=== PATIENT | male | born 1990 | race African-American/Black ===

== ENCOUNTER → 2020-09-19 | Outpatient (CLI) | payer OTHER ==
[~2020-09-19] MED LIST: ELIQUIS 5MG PO; FLAGYL500 MG PO; FLEXERIL 1010 MG/TAB PO; FOLIC ACID 11 MG/TA1 PO; IRON TABLETS325 MG PO; LEXAPRO 10MG10 MG PO; NEURONTIN600 MG/TAB PO; TOPROL XL 25MG25 MG PO; TYLENOL 325MG325 MG PO; VITAMIN D31000 I1 PO
== END ==
LOC: COL.RAD 12:23
DX: M54.81 Occipital neuralgia (principal)

== ENCOUNTER → 2020-12-15 | Outpatient (CLI) | payer OTHER | LOC: MHCPAIN 13:02 | DX: M54.16 Radiculopathy, lumbar region (principal); M53.3 Sacrococcygeal disorders, not elsewhere classified; G89.29 Other chronic pain | CPT/HCPCS: G0463 ==

== ENCOUNTER 2021-03-12 10:24 | Inpatient (IN) | payer OTHER ==
[2021-03-12] VITALS (9 sets, daily range): BP systolic 100–119; BP diastolic 44–74; PULSE 53–78; TEMP 98.5–98.8
[~2021-03-12] VITALS: Ht 177.8 cm; Wt 77.6 kg
--- NOTE | 2021-03-12 09:33 | NUR ---
RECEIVED REPORT FROM RADHA ESCOBEDO AT [facility]. AWAITING ARRIVAL OF PT TO ICU 8.
--- NOTE | 2021-03-12 10:57 | NUR ---
PT ARRIVES TO ICU 8 VIA EMS. PT ABLE TO SCOOT SELF TO ICU BED AND PLACED ON CARDIAC CONTINUOUS MONITOR. PT ON 2L VIA NC. VSS. CALL LIGHT AND URINAL WITHIN REACH. [facility] FINISHING UP FROM OTHER FACILITY.
--- NOTE | 2021-03-12 11:50 | NUR ---
DR MCKINLEY AT BEDSIDE DISCUSSING POC WITH PT.
--- NOTE | 2021-03-12 11:57 | NUR ---
DR LUBIN CALLED FOR ARRIVAL OF PT. STATES WILL BE DOWN SHORTLY TO SEE PT.
[2021-03-12 12:27] LABS: HEMOGLOBIN 10.4 g/dl (13.5-18.0); MEAN CELL VOLUME 74 fl (80.0-100.0); MEAN CORPUSCULAR HEMOGLOBIN 24 pg (27.0-31.0); MEAN CORPUSCULAR HGB CONC 32 g/dl (33.0-37.0); RED BLOOD COUNT 4.35 M/mm3 (4.20-5.60); REDCELL DISTRIBUTION WIDTH-CV 15.7 % (11.5-14.5)
[2021-03-12 12:55] LABS: HEMATOCRIT 32.3 % (42.0-52.0)
[2021-03-12 12:56] LABS: PLATELET COUNT 106 K/mm3 (130-400)
[2021-03-12 13:09] LABS: INR 1.5 (0.8-3.0)
[2021-03-12 13:11] LABS: PARTIAL THROMBOPLASTIN TIME 26.7 SECONDS (26.0-37.0)
--- NOTE | 2021-03-12 16:05 | NUR ---
PT TO OR AT 1230 AND BACK TO ICU ROOM AT 1605. RECEIVED REPORT FROM RADHA HODGES FROM PACU AT 1553, PER REPORT PT STABLE BUT C/O SOME DISCOMFORT. PT ARRIVES BACK TO ICU ROOM ON RA. CALL LIGHT AND URINAL WITHIN REACH. POC EXPLAINED, VERBALIZED UNDERSTANDING.
[2021-03-12] MEDS ORDERED: TOPROL XL 25MG25 MG PO (16:11)
[2021-03-12 16:46] LABS: HEMATOCRIT 27.3 % (42.0-52.0); HEMOGLOBIN 8.6 g/dl (13.5-18.0)
[2021-03-12] MEDS ORDERED: IRON TABLETS325 MG PO (17:24)
[2021-03-12] MEDS ORDERED: VITAMIN D31000 I1 PO (17:55)
[2021-03-12] MEDS ORDERED: TYLENOL 325MG325 MG PO (17:55)
[2021-03-12] MEDS ORDERED: LEXAPRO 10MG10 MG PO (17:55)
[2021-03-12] MEDS ORDERED: ELIQUIS 5MG PO (17:56)
[2021-03-12] MEDS ORDERED: FLEXERIL 1010 MG/TAB PO (17:57)
[2021-03-12] MEDS ORDERED: NEURONTIN600 MG/TAB PO (17:57)
[2021-03-12 19:08] LABS: HEMATOCRIT 25.3 % (42.0-52.0); HEMOGLOBIN 8.1 g/dl (13.5-18.0)
[2021-03-12 23:09] LABS: HEMATOCRIT 23.6 % (42.0-52.0); HEMOGLOBIN 7.5 g/dl (13.5-18.0)
[2021-03-13] VITALS (12 sets, daily range): BP systolic 108–124; BP diastolic 42–72; PULSE 54–86; TEMP 98–98.8
[2021-03-13 03:11] LABS: HEMATOCRIT 24.3 % (42.0-52.0); HEMOGLOBIN 7.7 g/dl (13.5-18.0)
[2021-03-13 05:16] LABS: BASO % 0.4 % (0.0-2.0); EOS % 0.3 % (0-4.0); GRAN # 4.6 K/mm3 (1.4-6.5); GRAN % 64.7 % (42.2-75.2); LYMPH # 1.9 K/mm3 (1.2-3.4); MEAN CELL VOLUME 74 fl (80.0-100.0); MEAN CORPUSCULAR HGB CONC 32 g/dl (33.0-37.0); MONO # 0.5 K/mm3 (0.1-0.6); MONO % 7.3 % (1.7-9.3); PLATELET COUNT 77 K/mm3 (130-400); RED BLOOD COUNT 3.03 M/mm3 (4.20-5.60); REDCELL DISTRIBUTION WIDTH-CV 15.4 % (11.5-14.5)
[2021-03-13 05:17] LABS: HEMATOCRIT 22.3 % (42.0-52.0); HEMOGLOBIN 7.2 g/dl (13.5-18.0); MEAN CORPUSCULAR HEMOGLOBIN 24 pg (27.0-31.0)
[2021-03-13 05:30] LABS: CALCIUM 8.1 mg/dL (8.4-10.2); CREATININE, serum 1.22 mg/dL (0.72-1.25); POTASSIUM 3.7 mmol/L (3.5-4.5)
--- NOTE | 2021-03-13 05:53 | NUR ---
PT A/O X3, AFEBRILE, VITAL SIGNS STABLE, ON ROOM AIR. PT DENIES ABD PAIN, AND ADB IS SOFT. PT TIRED UNSUCCESSFULLY TO HAVE A BM OVER NIGHT, UOP FOR SHIFT WAS 1900 M[address]. NO SIGNS OF BLEEDING FROM RECTUM. NO NAUSEA OR VOMITTING. X1 UNIT [facility] WAS INFUSED, [facility] TRENDING. TIMOTHY PARRA CONTACTED CONCERNING [facility] WAS INSTRUCTED TO NOT INFUSE SECOND UNIT AND TO SEE WHAT 0700 [facility] RESULTS WERE. SEE MAR/EMAR FOR OTHER DETAILS.
[2021-03-13 07:06] LABS: HEMATOCRIT 22.9 % (42.0-52.0); HEMOGLOBIN 7.2 g/dl (13.5-18.0)
--- NOTE | 2021-03-13 10:30 | NUR ---
Report from [facility] ICU nurse. Patient settled in room 322. Will monitor.
--- NOTE | 2021-03-13 11:30 | NUR ---
Patient unit of blood started per orders. Reviewed with patient signs and symptoms of transfusion reaction. He is understanding. Blood policy followed. This nurse to remains at bedside.
--- NOTE | 2021-03-13 11:45 | NUR ---
rounded. Plan of care reivewed. Patient continues to tolerate unit of blood without signs or symptoms of reaction.
--- NOTE | 2021-03-13 13:19 | NUR ---
Patient resting in bed. COntinues to tolerate transfusion without signs or symptoms of reaction. Will monitor.
--- NOTE | 2021-03-13 14:43 | NUR ---
Blood transfusion completed. Vss. He tolerated well. Patient complains of a lingering headache. Spoke to Shanell Koch, tylenol orders obtained. Patient provided with Low fiber diet education, patient offered caffiene for headache, but not interested at this time. Patient on phone, will monitor.
--- NOTE | 2021-03-13 16:35 | NUR ---
Patient resting in bed. On his phone. Patient reports getting up to the restroom & he reports feeling stronger after blood. Scds placed to Ble. Fresh ice water provided, he is not yet ready to order dinner. New socks on and hygiene supplies provided. He reports he wants to wait until tmrw to shower. Will continue to monitor.
--- NOTE | 2021-03-13 17:53 | NUR ---
Patient provided with warm blankets for comfort, denies other needs.
[2021-03-13 20:39] LABS: HEMATOCRIT 25.3 % (42.0-52.0); HEMOGLOBIN 8.2 g/dl (13.5-18.0)
--- NOTE | 2021-03-13 23:12 | NUR ---
PT STATES THAT HE IS HAVING SOME TROUBLE SLEEPING, FEELS LIKE HE IS STARTLING HIMSELF AWAKE. PT DENIES ANXIETY WHEN ASKED IF HE IS ANXIOUS. PT STATES THAT HE DOES HAVE A HEADACHE BUT DENIES ANY DIZZINESS OR SHORTNESS OF BREATH. TYLENOL ADMINISTERED FOR PAIN. Chelsea AGUIRRE CALLED ET NEW ORDERS RECEIVED.
--- NOTE | 2021-03-13 23:41 | NUR ---
PT REFUSES MELATONIN @ THIS TIME, STATES THAT HE WOULD LIKE TO TRY TO FALL ASLEEP NATURALLY. PT EDUCATED ON HOW MEDICATION WORKS ET CONTINUES TO REFUSE. PT ENCOURAGED TO CALL IF HE IS UNABLE TO SLEEP AFTER A WHILE. PT AGREES TO THIS THIS. CALL LIGHT WITHIN REACH.
--- NOTE | 2021-03-14 00:48 | NUR ---
PT CONTINUES TO HAVE COMPLAINTS OF NOT SLEEPING WELL ET BEING STARTLED AWAKE. PT IS ENCOURAGED TO TAKE MELATONIN BUT CONTINUES TO REFUSE. PT'S TLM SHOWS THAT PT BECOMES OCCASIONALLY TACHYCARDIC WHEN AWAKE, HR INTO LOW 100s. PT DENIES ANY SOB OR DIZZINESS, HAS BEEN AMBULATING TO BR WITH NO PROBLEMS. WHEN PT RELAXES ET APPEARS TO BE ASLEEP, HR IS 50-60s. PT IS CONCERNED THAT SOMETHING MAY BE WRONG ET DENIES ANXIETY. AIDA AGUIRRE CALLED ET NOTIFIED OF PT STATUS, STATES TO CONTINUE TO ENCOURAGE PT TO TAKE MELATONIN. NO NEW ORDERS @ THIS TIME.
--- NOTE | 2021-03-14 02:48 | NUR ---
PT APPEARS TO BE SLEEPING @ THIS TIME IN BED. RESPIRATIONS ARE UNLABORED.
--- NOTE | 2021-03-14 03:18 | NUR ---
PT USES CALL LIGHT, STATES THAT HE FEELS LIKE HE IS DRIPPING BLOOD FROM HIS RECTUM. NO BLOOD IS SEEN ON PT OR SURROUNDING LINENS WHEN ASSESSED. PT DENIES OTHER NEEDS, STATES THAT WILL BE ALL FOR NOW. RESPIRATIONS UNLABORED, CALL LIGHT WITHIN REACH.
[2021-03-14 03:31] VITALS: BP 118/63; PULSE 66; TEMP 98.3
[2021-03-14 08:16] LABS: BASO % 0.8 % (0.0-2.0); EOS # 0.1 K/mm3 (0.0-0.7); EOS % 2.7 % (0-4.0); GRAN # 2.5 K/mm3 (1.4-6.5); GRAN % 47.3 % (42.2-75.2); LYMPH # 2.2 K/mm3 (1.2-3.4); LYMPH % 42.5 % (20.0-51.0); MEAN CELL VOLUME 75 fl (80.0-100.0); MEAN CORPUSCULAR HGB CONC 33 g/dl (33.0-37.0); MONO # 0.3 K/mm3 (0.1-0.6); MONO % 6.5 % (1.7-9.3); PLATELET COUNT 81 K/mm3 (130-400); RED BLOOD COUNT 3.45 M/mm3 (4.20-5.60); REDCELL DISTRIBUTION WIDTH-CV 15.6 % (11.5-14.5)
[2021-03-14 08:21] LABS: HEMATOCRIT 25.7 % (42.0-52.0); HEMOGLOBIN 8.4 g/dl (13.5-18.0); MEAN CORPUSCULAR HEMOGLOBIN 24 pg (27.0-31.0)
[2021-03-14 08:25] LABS: CALCIUM 9.5 mg/dL (8.4-10.2); CREATININE, serum 1.2 mg/dL (0.72-1.25); POTASSIUM 4.1 mmol/L (3.5-4.5)
[2021-03-14 08:33] VITALS: BP 109/54; PULSE 62; TEMP 98.5
--- NOTE | 2021-03-14 09:37 | NUR ---
Pt has been up walking in the halls with no complaints. He is working on breakfast at this time, states he just wants to take it slow. No needs verbalized, call light within reach
--- NOTE | 2021-03-14 11:12 | NUR ---
SW met with patient to complete intake. Patient states that he lives alone in [facility] [place]. Point of contact is Drake Varela [phone]. Patient provides that he does not utilize any DME, and is independent with ADLs. Patient states that he is in the [employer] and utilizes a PCP from there as well as obtains medications from [place]. Patient provides that he does not have a DPOA-HC appointed and did not wish to appoint one at this time. Patient plan is to return to his home [place] and does not have any concerns with doing so. SW will continue to follow. DC plan: home
[2021-03-14 12:24] VITALS: BP 107/44; PULSE 59; TEMP 98.4
[2021-03-14 15:49] VITALS: BP 98/72; PULSE 76; TEMP 98.1
--- NOTE | 2021-03-14 18:56 | NUR ---
Pt continued to do well throughout the day with no pain complaints. He was independent in the room and eating low fiber diet. Report given to nights
[2021-03-14 19:36] VITALS: BP 111/50; PULSE 60; TEMP 98.4
[2021-03-15 01:20] VITALS: BP 101/44; PULSE 51; TEMP 98.3
[2021-03-15 04:29] VITALS: BP 132/57; PULSE 52; TEMP 98.6
--- NOTE | 2021-03-15 04:55 | NUR ---
PT AWAKE IN BED ET REQUESTS FRESH ICE WATER. PT DENIES PAIN, STATES THAT HE HAS SLEPT SOME BUT HAS BEEN UNABLE TO HAVE A BM, DOES PASS GAS. PT DENIES OTHER NEEDS. RESPIRATIONS UNLABORED, CALL LIGHT WITHIN REACH.
[2021-03-15 06:06] LABS: BASO % 0.5 % (0.0-2.0); EOS # 0.1 K/mm3 (0.0-0.7); EOS % 2.3 % (0-4.0); GRAN # 3.5 K/mm3 (1.4-6.5); GRAN % 57.2 % (42.2-75.2); MEAN CELL VOLUME 75 fl (80.0-100.0); MEAN CORPUSCULAR HGB CONC 33 g/dl (33.0-37.0); MONO # 0.4 K/mm3 (0.1-0.6); MONO % 6.8 % (1.7-9.3); PLATELET COUNT 100 K/mm3 (130-400); RED BLOOD COUNT 3.39 M/mm3 (4.20-5.60); REDCELL DISTRIBUTION WIDTH-CV 15.6 % (11.5-14.5)
[2021-03-15 06:07] LABS: HEMATOCRIT 25.5 % (42.0-52.0); HEMOGLOBIN 8.3 g/dl (13.5-18.0); MEAN CORPUSCULAR HEMOGLOBIN 24 pg (27.0-31.0)
[2021-03-15 08:21] VITALS: BP 117/51; PULSE 52; TEMP 98.3
--- NOTE | 2021-03-15 10:30 | NUR ---
Patient alert and oriented, answers questions appropriately. See assessment. Abdomen soft, non tender, distended. Bowel sounds active x4 quads. +Flatus. No bowel movement. No rectal bleeding. No c/o at this time.
[2021-03-15 12:47] VITALS: BP 115/58; PULSE 74; TEMP 98.3
[2021-03-15] MEDS ORDERED: FLAGYL500 MG PO (13:55)
--- NOTE | 2021-03-15 15:43 | NUR ---
Initial visit; Patient thanked Screedman for looking in on him and offering comfort and prayer. Screedman will keep him in her prayers and follow up while he is here.
[2021-03-15] MEDS ORDERED: ELIQUIS 5MG PO (15:58)
[2021-03-15 16:10] VITALS: BP 115/47; PULSE 56; TEMP 97.8
[2021-03-15] MEDS ORDERED: FOLIC ACID 11 MG/TA1 PO (16:14)
[2021-03-15] MEDS ORDERED: TOPROL XL 25MG25 MG PO (16:16)
--- NOTE | 2021-03-15 18:42 | NUR ---
Discharge instructions reviewed with patient, verbalized understanding. Discharged ambulatory to auto/home with friend at 1842.
== END 2021-03-15 18:42 | disposition home or self-care (01) | DRG 988 ==
LOC: ICU 10:24 → SURG 11:26 → ICU 11:26 → SURG 03-13 10:07
PROVIDERS: Internal Medicine; Physician Assistant; Surgery; ADMIT Internal Medicine
PROC: 30233N1 Transfusion of Nonautologous Red Blood Cells into Peripheral Vein, Percutaneous Approach (ICD-10-PCS; principal; 2021-03-12 13:30)
PROC: 06LY0CC Occlusion of Hemorrhoidal Plexus with Extraluminal Device, Open Approach (ICD-10-PCS; 2021-03-12 13:30)
DX: D68.32 Hemorrhagic disorder due to extrinsic circulating anticoagulants (principal); D62 Acute posthemorrhagic anemia; F32.A Depression, unspecified; I10 Essential (primary) hypertension; D69.6 Thrombocytopenia, unspecified; K59.00 Constipation, unspecified; Z20.822 Contact with and (suspected) exposure to COVID-19; Z79.01 Long term (current) use of anticoagulants; Z86.711 Personal history of pulmonary embolism
CPT/HCPCS: 99223-AI; 99233-AI; 99239; J0690; J1756; J2270; J2405; J2704; J3010; J7030; J7120; P9016

== ENCOUNTER → 2021-03-18 | Outpatient (CLI) | payer OTHER ==
[2021-03-18 12:29] LABS: HEMATOCRIT 27.9 % (42.0-52.0)
== END ==
LOC: COL.LAB 11:30
DX: K92.2 Gastrointestinal hemorrhage, unspecified (principal); Z98.890 Other specified postprocedural states

== ENCOUNTER → 2021-03-22 | Outpatient (CLI) | payer OTHER ==
[2021-03-22 12:46] LABS: HEMOGLOBIN 11.1 g/dl (13.5-18.0)
[2021-03-22 12:49] LABS: HEMATOCRIT 36.2 % (42.0-52.0)
== END ==
LOC: COL.LAB 11:03
PROVIDERS: Internal Medicine
DX: K92.2 Gastrointestinal hemorrhage, unspecified (principal)

== ENCOUNTER → 2022-06-15 | Outpatient (CLI) | payer OTHER | LOC: MHCPAIN 14:17 | DX: M47.817 Spondylosis without myelopathy or radiculopathy, lumbosacral region (principal); M54.50 Low back pain, unspecified | CPT/HCPCS: G0463 ==